=== PATIENT | female | born 1985 | race African-American/Black ===

== ENCOUNTER 2021-03-12 19:33 | Emergency (ER) | payer MEDICAID, OTHER ==
[~2021-03-12] VITALS: Ht 172.7 cm; Wt 69.0 kg
[~2021-03-12 19:33] MED LIST: FERR325T23 PO; IBUP-2028 PO; PREN1TAB78 PO
[2021-03-12 19:48] VITALS: BP 121/57
[2021-03-12] MEDS ORDERED: LIDOCAINE HCL/PF 1% 10 MG/ML 5ML VIAL IJ ONE (21:15)
[2021-03-12] MEDS ORDERED: BACITRACIN ZINC OINT UDPKT TOP ONE (21:15)
[2021-03-12] MEDS ORDERED: TETANUS, DIPHTHERIA, PERTUSSIS VAC/PF 0.5ML (>7YR OLD) IM ONE (23:15)
[2021-03-12] MEDS ORDERED: ACETAMINOPHEN 325MG TABLET PO ONE (23:15)
[2021-03-12] MEDS ORDERED: ACET-2708 MT (23:49)
== END 2021-03-12 23:59 | disposition home or self-care (01) ==
LOC: ER 19:33
DX: S61.411A Laceration without foreign body of right hand, initial encounter (principal); W25.XXXA Contact with sharp glass, initial encounter; Y93.89 Activity, other specified; Y92.018 Other place in single-family (private) house as the place of occurrence of the external cause
CPT/HCPCS: 12002; 73130; 90471; 90715; 99283; J3490; Z7610